=== PATIENT | female | born 1950 | race Caucasian/White ===

== ENCOUNTER → 2016-10-28 | Outpatient (CLI) | payer BC | END | disposition home or self-care (01) | LOC: RAD.S 16:44 | DX: S62.165A Nondisplaced fracture of pisiform, left wrist, initial encounter for closed fracture (principal); S62.145A Nondisplaced fracture of body of hamate [unciform] bone, left wrist, initial encounter for closed fracture; W00.9XXA Unspecified fall due to ice and snow, initial encounter ==